=== PATIENT | male | born 1975 | race Caucasian/White ===

== ENCOUNTER → 2017-03-28 | Outpatient (CLI) | payer OTHER ==
--- NOTE | 2017-03-28 17:10 | REP ---
HISTORY: Pleural thickening. There are no prior CT examinations of the chest for comparison. The lack of intravenous contrast decreases the sensitivity of the exam. There is no gross mediastinal or hilar adenopathy. There are no pleural or pericardial effusions. The imaged upper abdomen and imaged osseous structures are within normal limits. Evaluation of the lung falcon shows a 7 mm size nodule in the apical posterior segment of the left upper lobe abutting the major fissure. There is evidence of biapical pleural parenchymal scarring. In the right lower lobe, there is a pleural based 5 mm sized nodule. IMPRESSION: Pulmonary nodules as described above. According to the revised Kenny Society criteria, recommendation is for followup with CT in 3 months as the 7 mm size lesion represents a category 4A lesion. Evidence of biapical pleural parenchymal scarring which can also be reviewed in the 3 month time frame. Smaller right lower lobe pulmonary nodule which can also be reassessed. There is no evidence of frankly abnormal focal pleural thickening. Findings as described above. Signed by Jose Rafael Dumont DO 03/28/2017 05:12 P
== END ==
LOC: M RAD 07:35
PROVIDERS: ATTEND Physician Assistant
DX: J92.9 Pleural plaque without asbestos (principal); R91.8 Other nonspecific abnormal finding of lung field; F17.210 Nicotine dependence, cigarettes, uncomplicated

== ENCOUNTER → 2017-06-20 | Outpatient (CLI) | payer OTHER ==
--- NOTE | 2017-06-20 10:27 | REP ---
CT of the chest without contrast: History: Abnormal lung field findings. Comparison chest CT study March [address] findings: Preliminary digital housing assistant radiograph is unremarkable. The previously noted pleural based nodule in the left upper lobe abutting the major fissure is again seen unchanged. This is most likely a benign pleural plaque. There is a 5 mm noncalcified pulmonary nodule in the right middle lobe on image number 79 of 120 of today's study series 201. Just above this, there is a subpleural fibrotic appearing 5 mm nodular density in the right middle lobe seen on image number 66 of 120. These are unchanged as well compared with the March 28, 2017 study. There is a tiny 4 mm area of subpleural nodular density in the right lower lobe on image number 86. No other significant pulmonary nodular density is seen. No adrenal lesion is seen. No hilar or mediastinal mass or adenopathy is observed. No pleural or pericardial effusion is noted. No bony destructive lesion. Impression: Several stable tiny 4-5 mm noncalcified pulmonary nodular densities. These are most likely granulomatous. Follow-up chest CT study could be performed in 1 year. Signed by Hieu Funk MD 06/20/2017 01:35 P
== END ==
LOC: M RAD 08:25
PROVIDERS: ATTEND Internal Medicine Pulmonary Disease
DX: R91.8 Other nonspecific abnormal finding of lung field (principal)

== ENCOUNTER 2020-03-29 09:54 | Emergency (ER) | payer OTHER, SELFPAY ==
[~2020-03-29] VITALS: Ht 188 cm; Wt 90.2 kg
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
[2020-03-29 10:33] LABS: HEMATOCRIT 41.2 % (42.0-52.0); HEMOGLOBIN 13.8 g/dl (13.5-17.5); MEAN CORPUSCULAR HEMOGLOBIN 29.4 pg (27.0-33.0); MEAN CORPUSCULAR HGB CONC 33.5 g/dl (32.0-36.5); MEAN CORPUSCULAR VOLUME 87.7 fl (80.0-96.0); PLATELET COUNT, AUTOMATED 203 10^3/uL (150-450); WHITE BLOOD COUNT 8.9 10^3/uL (4.0-10.0)
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
[2020-03-29 10:53] LABS: BLOOD UREA NITROGEN 8 MG/DL (7-18); CALCIUM LEVEL 8.8 MG/DL (8.5-10.1); CARBON DIOXIDE LEVEL 27 MEQ/L (21-32); CHLORIDE LEVEL 106 MEQ/L (98-107); CREATININE FOR GFR 0.89 MG/DL (0.70-1.30); GLOMERULAR FILTRATION RATE > 60.0 (>60); GLUCOSE, FASTING 112 MG/DL (70-100); POTASSIUM SERUM 3.9 MEQ/L (3.5-5.1); SODIUM LEVEL 137 MEQ/L (136-145)
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
[2020-03-29] MEDS ORDERED: SERT-138 PO (11:22)
[2020-03-29] MEDS ORDERED: DOCU100C16 PO (11:22)
[2020-03-29] MEDS ORDERED: OMEP-221 PO (11:22)
[2020-03-29] MEDS ORDERED: VITA50005 PO (11:22)
[2020-03-29 12:47] LABS: AMPHETAMINES LEVEL URINE NEGATIVE (NEGATIVE); BARBITURATES URINE NEGATIVE (NEGATIVE); BENZODIAZEPINES URINE NEGATIVE (NEGATIVE); CANNABINOIDS URINE NEGATIVE (NEGATIVE); COCAINE METABOLITE URINE NEGATIVE (NEGATIVE); METHADONE URINE NEGATIVE (NEGATIVE); OPIATES URINE NEGATIVE (NEGATIVE); PHENCYCLIDINE URINE NEGATIVE (NEGATIVE)
[2020-03-29] MEDS ORDERED: NORC1TAB7 PO (13:02)
[2020-03-29 14:49] VITALS: BP 135/93
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
== END 2020-03-29 15:06 | disposition home or self-care (01) ==
LOC: M ED 09:54
DX: S82.002A Unspecified fracture of left patella, initial encounter for closed fracture (principal); S92.511A Displaced fracture of proximal phalanx of right lesser toe(s), initial encounter for closed fracture; V49.40XA Driver injured in collision with unspecified motor vehicles in traffic accident, initial encounter; Y92.9 Unspecified place or not applicable; Y93.9 Activity, unspecified; Y99.9 Unspecified external cause status; Z79.899 Other long term (current) drug therapy

== ENCOUNTER → 2020-10-17 | Outpatient (CLI) | payer OTHER ==
[~2020-10-17] MED LIST: DOCU100C16 PO; ISOVUE-300 61% 50ML VIAL As Ordered ONE; LIDOCAINE 1% MDV 20ML VIAL As Ordered ONE; NORC1TAB7 PO; OMEP-221 PO; SERT-138 PO; TRIAMCINOLONE ACETONIDE SUSP 40 MG/ML VIAL (J3301) As Ordered ONE; VITA50005 PO
--- NOTE | 2020-10-17 16:42 | REP ---
INDICATION: DISP FX OF LEFT PROX PHALANX LESSER TOE. COMPARISON: None. TECHNIQUE: The procedure was performed under the direct supervision of Dr. Funk. The benefits and risks including but not limited to pain infection bleeding and anaphylaxis were explained to the patient and informed consent was obtained. The left 5th metatarsophalangeal joint was localized using fluoroscopic guidance. The skin was prepped and draped in a sterile fashion. 1% lidocaine was used as a local anesthetic. Using fluoroscopic guidance a 25 gauge needle was inserted and advanced into the joint. 0.5 cc of Isovue-300 was injected to verify placement. 0.75 cc of a solution containing 0.5 cc of 1% lidocaine and 0.25 cc of Kenalog 40 mg was injected. The needle was then removed. The patient tolerated the procedure well and there were no immediate complications. Less than 6 seconds of fluoroscopy time was utilized for this procedure. FINDINGS: None IMPRESSION: Fluoroscopic guidance for left 5th metatarsophalangeal joint injection. <Electronically signed by Mian Canseco > 10/17/20 1621 <Electronically signed by Rock Funk > 10/17/20 2186
== END ==
LOC: M RADPRO 10:25
PROVIDERS: ATTEND Physician Assistant
DX: S92.512A Displaced fracture of proximal phalanx of left lesser toe(s), initial encounter for closed fracture (principal); X58.XXXA Exposure to other specified factors, initial encounter; Y93.9 Activity, unspecified; Y92.9 Unspecified place or not applicable; Y99.9 Unspecified external cause status
CPT/HCPCS: 20605; 77002; J3301; Q9967

== ENCOUNTER 2020-10-25 10:15 | Outpatient (RCR) | payer OTHER ==
[~2020-10-25 10:15] MED LIST changes: -ISOVUE-300 61% 50ML VIAL As Ordered ONE; -LIDOCAINE 1% MDV 20ML VIAL As Ordered ONE; -TRIAMCINOLONE ACETONIDE SUSP 40 MG/ML VIAL (J3301) As Ordered ONE
== END 2020-10-27 ==
LOC: M PT 10:15
PROVIDERS: ATTEND Orthopaedic Surgery Sports Medicine
DX: S83.512D Sprain of anterior cruciate ligament of left knee, subsequent encounter (principal); S83.522D Sprain of posterior cruciate ligament of left knee, subsequent encounter

== ENCOUNTER 2020-11-15 10:10 | Outpatient (RCR) | payer OTHER | END 2020-11-27 | LOC: M PT 10:10 | PROVIDERS: ATTEND Orthopaedic Surgery Sports Medicine | DX: S83.512D Sprain of anterior cruciate ligament of left knee, subsequent encounter (principal); S83.522D Sprain of posterior cruciate ligament of left knee, subsequent encounter ==